=== PATIENT | female | born 1985 | race African-American/Black ===

== ENCOUNTER 2019-09-25 16:43 | Emergency (ER) | payer MEDICAID ==
[~2019-09-25] VITALS: Ht 160 cm; Wt 83.9 kg
--- NOTE | 2019-09-25 17:06 | NUR ---
PT SELF PRESENTS TO ER BED 04. C/O LOWER ABDOMINAL PAIN X 3-4 DAYS. PT STATES HAS HX OF ABDOMINAL HERNIA YEARS AGO. NO BULGING ON AFFECTED SIGHT NOTED UPON INITIAL ASSESSMENT. PLACED ON MONITOR. C/O 09/21 PAIN. VSS. AWAITING MD OTT.
--- NOTE | 2019-09-25 18:11 | NUR ---
GUANAKO HINES AT BEDSIDE FOR EVAL.
[2019-09-25] MEDS ORDERED: ONDANSETRON HCL/PF 4 MG/2 ML VIAL ONE (18:26)
[2019-09-25] MEDS ORDERED: MORPHINE SULFATE INJ 4 MG/ML DISP.SYRIN ONE (18:26)
[2019-09-25] MEDS ORDERED: ONDANSETRON HCL/PF 4 MG/2 ML VIAL IVP ONE (18:30)
[2019-09-25] MEDS ORDERED: IV NS 0.9% 1,000 ML BAG IV ONE (18:30)
[2019-09-25] MEDS ORDERED: MORPHINE SULFATE INJ 2 MG/ML DISP.SYRIN IV ONE (18:30)
[2019-09-25 18:58] LABS: BASOPHILS % (AUTO) 0.8 % (0.0-2.0); EOSINOPHILS % (AUTO) 0.7 % (0.0-6.0); HEMATOCRIT 38 % (33-45); HEMOGLOBIN 12.8 g/dL (11.5-14.8); LYMPHOCYTES % (AUTO) 30.9 % (20.0-44.0); MEAN CORPUSCULAR HGB CONC 33 g/dl (31.0-36.0); MEAN CORPUSCULAR VOLUME 100 fL (82-100); MONOCYTES # (AUTO) 0.4 /CMM (0.1-1.30); MONOCYTES % (AUTO) 13.3 % (2.0-12.0); NEUTROPHILS # (AUTO) 1.8 /CMM (1.8-8.9); NEUTROPHILS % (AUTO) 54.3 % (43.0-81.0); PLATELET COUNT (AUTO) 257 /CMM (150-450); RED BLOOD CELL COUNT(AUTO) 3.85 MIL/uL (4.0-5.2); WHITE BLOOD COUNT (AUTO) 3.2 K/uL (4.3-11.0)
[2019-09-25 19:08] LABS: APPEARANCE,URINE Clear (CLEAR); BILIRUBIN,URINE Negative (NEGATIVE); BLOOD, URINE Negative Ery/uL (NEGATIVE); COLOR,URINE Yellow (YELLOW); KETONES,URINE Negative (NEGATIVE); LEUKOCYTE ESTERASE ,URINE Negative (NEGATIVE); NITRITE, URINE Negative (NEGATIVE); PROTEIN,URINE Negative (NEGATIVE); UGLUCOSE Negative (NEGATIVE); UROBILINOGEN,URINE 0.2 EU/dL (0.2)
[2019-09-25 19:19] LABS: ALBUMIN 3.8 g/dL (3.4-5.0); BILIRUBIN,DIRECT 0.1 mg/dL (0.0-0.2); BILIRUBIN,TOTAL 0.4 mg/dL (0.2-1.0); CALCIUM, SERUM 9.2 mg/dL (8.5-10.1); CREATININE 0.9 mg/dL (0.6-1.3); POTASSIUM 3.8 mmol/L (3.5-5.1)
--- NOTE | 2019-09-25 19:29 | NUR ---
RADIOLOGY CALLED FOR CT ABD/PELVIS.
--- NOTE | 2019-09-25 19:29 | NUR ---
CALLED LAB REGARDING URINE DRUG SCREEN. LAB WILL RUN THE SPECIMEN.
[2019-09-25] MEDS ORDERED: IOHEXOL-300 100 ML VIAL IV ONE (19:34)
[2019-09-25] MEDS ORDERED: IV NS 0.9% 250 ML IV ONE (19:35)
[2019-09-25] MEDS ORDERED: CT SWABBABLE VALVE TRANS SET 1 EA INFUS.SET MC ONE (19:35)
[2019-09-25 20:04] LABS: ALCOHOL, BLOOD < 3 mg/dL (0-0); SALICYLATE 4.5 mg/dL (2.8-20.0)
--- NOTE | 2019-09-25 20:07 | NUR ---
AMBULATED TO THE RESTROOM TO PROVIDE URINE SAMPLE
--- NOTE | 2019-09-25 22:15 | NUR ---
CLINICAL FAXED TO [facility] FOR VOLUNTARY PSYCH ADMISSION.
--- NOTE | 2019-09-25 23:36 | NUR ---
Patient is resting comfortably in bed. Easily aroused. VSS.
--- NOTE | 2019-09-26 00:35 | NUR ---
Patient is resting comfortably in bed with eyes closed. Easily aroused. VSS.
--- NOTE | 2019-09-26 01:23 | NUR ---
PT ACCEPTED AT [facility] ACCEPTING MD ROSALES PHONE# FOR REPORT EXT [phone]
--- NOTE | 2019-09-26 01:26 | NUR ---
AMBULATED TO THE RESTROOM AND BACK
--- NOTE | 2019-09-26 01:50 | NUR ---
CALLED [facility] AND SPOKE TO RADHA TO ARRANGE TRANSPORTATION[id number]
--- NOTE | 2019-09-26 02:23 | NUR ---
[facility] CALLED REGARDING TRANSPORT ([facility]) ETA [phone]
[2019-09-26 02:52] VITALS: BP 134/81
--- NOTE | 2019-09-26 03:05 | NUR ---
REPORT GIVEN TO LUCA BROWN FOR SUELLEN AND SARBJIT FROM TRANSPORT.
== END 2019-09-26 03:10 ==
LOC: ER 16:51
DX: R10.30 Lower abdominal pain, unspecified (principal); R45.851 Suicidal ideations; F31.9 Bipolar disorder, unspecified; Z98.51 Tubal ligation status; Z98.890 Other specified postprocedural states; Z88.6 Allergy status to analgesic agent; Z60.2 Problems related to living alone
CPT/HCPCS: 36415; 74177; 80048; 80076; 80305; 80307; 80329; 81001; 83690; 84703; 85025; 96361; 96374; 96375; 99285; G0480; J2270; J2405; J7030; J7050; Q9967; 81000-TC